=== PATIENT | female | born 1965 | race Caucasian/White ===

== ENCOUNTER 2018-06-27 23:58 | Emergency (ER) | payer OTHER ==
[2018-06-28] MEDS ORDERED: HYDROcodone/APAP 5-325MG 1 EACH TAB PO STA (00:48)
[2018-06-28] MEDS ORDERED: TOPICAL SKIN ADHESIVE 1 EACH AMP TOPICAL ONE (00:48)
[2018-06-28] MEDS ORDERED: DIPH,PERTUS(ACELL)TETVAC-LF 0.5 ML VIAL IM ONE (00:48)
--- NOTE | 2018-06-28 01:23 | CT ---
EXAM: CT Head Without Intravenous Contrast CLINICAL HISTORY: Patient presents with pain and swelling on left side of face after fall. TECHNIQUE: Axial computed tomography images of the head/brain without intravenous contrast. DLP is 728.8 mGy-cm. This CT exam was performed using one or more of the following dose reduction techniques: automated exposure control, adjustment of the mA and/or kV according to patient size, and/or use of iterative reconstruction technique. COMPARISON: No relevant prior studies available. FINDINGS: Brain: No hemorrhage. No mass effect. Menjivar white junction preserved. Ventricles: Age appropriate Bones/joints: No acute fracture. Soft tissues: Left facial soft tissue injury. Sinuses: Well aerated. Mastoid air cells: Well aerated. IMPRESSION: No acute intracranial findings
--- NOTE | 2018-06-28 01:24 | CT ---
EXAM: CT Facial Without Intravenous Contrast CLINICAL HISTORY: ITS.REASON CT Reason: Pain TECHNIQUE: Axial computed tomography images of the facial without intravenous contrast. This CT exam was performed using one or more of the following dose reduction techniques: automated exposure control, adjustment of the mA and/or kV according to patient size, and/or use of iterative reconstruction technique. DLP 728.8 COMPARISON: No relevant prior studies available. FINDINGS: No acute fracture. Soft tissue injury left facial soft tissues. Paranasal sinuses and mastoids well-aerated. IMPRESSION: No acute fracture.
--- NOTE | 2018-06-28 01:49 | ED ---
Fall HPI - General Chief Complaint: Fall Stated Complaint: Fall Lac. on Face Time Seen by Provider: 06/28/18 00:16 Source: patient Mode of arrival: ambulatory - History of Present Illness Initial Comments: 60-year-old female patient presents to the emergency department today for evaluation after a trip and fall accident. Patient states around 11:30 she was walking through the room in her home when she tripped over the rug and fell striking her face on a bookcase. Patient denies any loss of consciousness with this injury. She did sustain a laceration to the face. She denies any use of anticoagulant or antiplatelet medications. Does report a mild headache with some nausea currently. Denies any vomiting. Denies any blurred or double vision. Patient is reporting pain and swelling to the face. She denies any other injuries. Denies any neck or back pain. Patient denies any chest pain, shortness of breath, dizziness, weakness, abdominal pain, or difficulties with bowel movements or urination. - Related Data Previous Rx's Medication Instructions Recorded Ibuprofen [Motrin] 600 mg PO Q8HR PRN #30 tab 06/28/18 Allergies Allergy/AdvReac Type Severity Reaction Status Date / Time No Known Allergies Allergy Verified 06/28/18 00:50 Review of Systems ROS Statement: Those systems with pertinent positive or pertinent negative responses have been documented in the HPI. ROS Other: All systems not noted in ROS Statement are negative. Past Medical History Past Medical History: No Reported History History of Any Multi-Drug Resistant Organisms: None Reported Additional Past Surgical History / Comment(s): tumor taken off lung in 1998 Past Psychological History: No Psychological Hx Reported Smoking Status: Never smoker Past Alcohol Use History: Occasional Past Drug Use History: None Reported General Exam Limitations: no limitations General appearance: alert, in no apparent distress, other (Physical well- developed, well-nourished adult female patient in no acute distress. Vital signs upon presentation are temperature 97.6F, pulse 95, respirations 16, blood pressure 124/80, pulse ox 100% on room air.) Head exam: Present: other (Left sided forehead contusion with small abrasion, just above the left eyebrow, soft tissue swelling present. No perioribital tenderness. Left maxillary tenderness, soft tissue swelling, 3cm simple laceration, superficial.) Eye exam: Present: normal appearance, PERRL, EOMI. Absent: scleral icterus, conjunctival injection, nystagmus, periorbital swelling ENT exam: Present: normal exam, normal oropharynx, mucous membranes moist Neck exam: Present: normal inspection, full ROM, other (Nontender, no step-off, no deformity to firm midline palpation of the posterior cervical spine. Full range of motion without pain or limitation.). Absent: tenderness, meningismus, lymphadenopathy Respiratory exam: Present: normal lung sounds bilaterally. Absent: respiratory distress, wheezes, rales, rhonchi, stridor Cardiovascular Exam: Present: regular rate, normal rhythm, normal heart sounds. Absent: systolic murmur, diastolic murmur, rubs, gallop, clicks GI/Abdominal exam: Present: soft, normal bowel sounds. Absent: distended, tenderness, guarding, rebound, rigid Back exam: Present: normal inspection, other (Nontender, no step-off, no deformity to firm midline palpation of the thoracic and lumbar vertebrae. Full range of motion without pain or limitation.). Absent: vertebral tenderness Neurological exam: Present: alert, oriented X3, CN II-XII intact, other ( Strength in all 4 extremities is 5/5) Psychiatric exam: Present: normal affect, normal mood Skin exam: Present: warm, dry, intact, normal color. Absent: rash Course Vital Signs 06/28/18 00:05 Temperature 97.6 F Pulse Rate 95 Respiratory 16 Rate Blood Pressure 124/80 O2 Sat by Pulse 100 Oximetry Procedures - Laceration Laceration #1 Consent Obtained: verbal consent Indication: laceration Site: face (left maxillary region) Size (cm): 3 Description: linear Depth: simple, single layer Pre-repair: irrigated extensively Type of Sutures: other (Exofin skin adhesive) Patient Tolerated Procedure: well, no complications Medical Decision Making - Medical Decision Making 52-year-old female patient presented to the emergency department today for evaluation of facial injury after tripping and falling over a rug at her home. Physical examination did reveal soft tissue swelling to the left forehead and over the left maxillary region. There is also a 3 cm laceration noted to the left maxillary region. CT facial bones and brain was performed without contrast , both images showed no acute abnormalities, no bony abnormalities. Patient is neurologically intact with no focal deficits. We did repair the laceration using exofin skin adhesive glue. We did discuss signs or symptoms of worsening head injury and signs or symptoms of infection. We did discuss skin adhesive care. She is instructed to follow-up with her primary care physician for recheck in 1-2 days. Return parameters were discussed in detail. She verbalizes understanding and agrees with this plan. - Radiology Data Radiology results: report reviewed, image reviewed CT facial bones was performed without contrast. Report was reviewed in its entirety. Impression by Dr. Adler shows no acute fracture. CT head without contrast was obtained. Report was reviewed in its entirety. Impression by Dr. Adler shows no acute intracranial findings. Disposition Clinical Impression: Facial contusion, Laceration of left cheek Disposition: HOME SELF-CARE Condition: Good Instructions (If sedation given, give patient instructions): Laceration (ED), Contusion in Adults (ED), Skin Adhesive Care (ED) Additional Instructions: Do not pick or pull at group. This can become wet but do not submerge in water or scrub. Monitor for signs or symptoms of infection including but not limited to redness, swelling, drainage of pus, fever, or chills. Apply ice 20 minutes at a time at least 4 times daily to painful areas. Follow-up with your primary care physician for recheck in 1-2 days. Return to the emergency department immediately for any new, worsening, or concerning symptoms. Prescriptions: Ibuprofen [Motrin] 600 mg PO Q8HR PRN #30 tab PRN Reason: Pain Is patient prescribed a controlled substance at d/c from ED?: No Referrals: None,Stated [Primary Care Provider] - 1-2 days Time of Disposition: 01:49
[2018-06-28 02:37] VITALS: BP 134/78; PULSE 78; RESP 20; TEMP 98.1
== END 2018-06-28 02:27 | disposition home or self-care (01) ==
LOC: EC 23:58
DX: S01.412A Laceration without foreign body of left cheek and temporomandibular area, initial encounter (principal); Z23 Encounter for immunization; W01.198A Fall on same level from slipping, tripping and stumbling with subsequent striking against other object, initial encounter
CPT/HCPCS: 12013; 70450; 70486; 90471; 90715; 99283